=== PATIENT | male | born 1970 | race Two or more races ===

== ENCOUNTER 2017-03-17 15:43 | Inpatient (IN) | payer SELFPAY ==
[~2017-03-17] VITALS: Ht 167.6 cm; Wt 95.7 kg
[2017-03-17] MEDS ORDERED: IBUPROFEN 600MG TABLET PO STA (17:16)
[2017-03-17] MEDS ORDERED: SODIUM CHLORIDE 0.9% 1,000 ML IV ONE (17:16)
[2017-03-17 17:48] LABS: INR 1.2; PROTHROMBIN TIME 12.5 sec (9.4-11.6)
[2017-03-17 17:49] LABS: CHLORIDE 100 mEq/L (98-107)
[2017-03-17 17:51] LABS: CARBON DIOXIDE 21 mEq/L (21-32)
[2017-03-17 17:56] LABS: ETHANOL BLOOD < 10 mg/dL
[2017-03-17 17:58] LABS: TROPONIN I 0.07 ng/mL (0.00-0.04)
[2017-03-17 18:27] LABS: BASOPHILS % 1.3 % (0.0-2.0); EOSINOPHILS % 0.9 % (0.0-5.0); HEMATOCRIT. 35.8 % (42.0-52.0); HEMOGLOBIN. 12.5 g/dL (14.0-18.0); LYMPHOCYTES % 21.4 % (20.0-50.0); MEAN CORPUSCULAR HEMOGLOBIN 32.3 pg (28.0-32.0); MEAN CORPUSCULAR VOLUME 92.6 fL (80.0-94.0); MEAN PLATELET VOLUME 8.2 fl (7.4-10.4); MONOCYTES % 13.5 % (2.0-8.0); NEUTROPHILS % 62.9 % (40.0-76.0); PLATELET 130 x1000/uL (130-400); RED BLOOD CELL COUNT 3.87 mill/uL (4.7-6.1); RED CELL DISTRIBUTION WIDTH 14.4 % (11.6-14.6)
[2017-03-17] MEDS ORDERED: ASPIRIN 325MG TABLET PO ONE (18:45)
[2017-03-17 19:17] LABS: CLARITY URINE CLEAR (CLEAR); COLOR URINE YELLOW (YELLOW); GLUCOSE URINE NEGATIVE (NEGATIVE); KETONES URINE 1+ (NEGATIVE); LEUKOCYTE ESTERASE URINE NEGATIVE (NEGATIVE); NITRITE URINE NEGATIVE (NEGATIVE); OCCULT BLOOD URINE NEGATIVE (NEGATIVE); PROTEIN URINE TRACE (NEGATIVE)
[2017-03-17 19:32] LABS: *AMPHETAMINES SCREEN URINE PRESUMTIVE POSITIVE (NEGATIVE); *BARBITURATES SCREEN URINE NEGATIVE (NEGATIVE); *BENZODIAZEPINES SCREEN URINE NEGATIVE (NEGATIVE); *COCAINE SCREEN URINE NEGATIVE (NEGATIVE); CANNABINOID URINE SCREEN NEGATIVE (NEGATIVE); METHADONE URINE SCREEN NEGATIVE (NEGATIVE); OPIATES URINE SCREEN NEGATIVE (NEGATIVE); PHENCYCLIDINE URINE SCREEN NEGATIVE (NEGATIVE)
[2017-03-17] MEDS ORDERED: GUAIFENESIN 200MG/10ML SUGAR FREE UDC PO PRN (20:30)
[2017-03-17] MEDS ORDERED: DIPHENHYDRAMINE 50MG/ML VIAL IV PRN (20:30)
[2017-03-17] MEDS ORDERED: NITROGLYCERIN 0.4MG TABLET SL SL PRN (20:30)
[2017-03-17] MEDS ORDERED: LORAZEPAM 2MG/ML CPJ IV PRN (20:30)
[2017-03-17] MEDS ORDERED: ONDANSETRON HCL 4MG/2ML VIAL IV PRN (20:30)
[2017-03-17] MEDS ORDERED: CLONIDINE 0.1MG TABLET PO PRN (20:30)
[2017-03-17] MEDS ORDERED: DOCUSATE SODIUM 100MG CAPSULE PO PRN (20:30)
[2017-03-17] MEDS ORDERED: ACETAMINOPHEN 325MG TABLET PO PRN (20:30)
[2017-03-17] MEDS ORDERED: IPRATROPIUM/ALBUTEROL 0.5-3(2.5)MG/3ML NEB INH PRN (20:30)
[2017-03-17] MEDS ORDERED: MAGNESIUM/ALUMINUM HYDROXIDE/SIMETHICONE 30ML UDC PO PRN (20:30)
[2017-03-17] MEDS ORDERED: NA PHOS,M-B/NA PHOS,DI-BA ENEMA 118ML PR PRN (21:00)
[2017-03-17] MEDS: FAMOTIDINE 20MG/2ML VIAL IV SCH (21:00)
[2017-03-17] MEDS ORDERED: ZOLPIDEM TARTRATE 5MG TABLET PO PRN (21:00)
[2017-03-17 23:45] VITALS: BP 155/95
[2017-03-18] MEDS ORDERED: IBUP-2029 PO (00:10)
[2017-03-18] MEDS: DILTIAZEM HCL 60MG TABLET PO SCH ×3 (00:38→12:55)
[2017-03-18] MEDS: LISINOPRIL 20MG TABLET PO SCH ×2 (00:38→08:26)
[2017-03-18] MEDS: KETOROLAC 15MG/ML VIAL IV PRN ×2 (00:39→08:28)
[2017-03-18 01:26] LABS: CREATINE KINASE MB FRACTION 0.9 ng/mL (0.5-3.6); TROPONIN I 0.09 ng/mL (0.00-0.04)
[2017-03-18 04:00] VITALS: BP 140/83
[2017-03-18 08:00] VITALS: BP 118/73
[2017-03-18] MEDS: FAMOTIDINE 20MG/2ML VIAL IV SCH (08:28)
[2017-03-18] MEDS ORDERED: ENOXAPARIN 30MG/0.3ML SYR SUBCUT SCH ×2 (09:00→21:00)
[2017-03-18] MEDS ORDERED: ASPIRIN 325MG EC TABLET PO SCH (09:00)
[2017-03-18 11:50] VITALS: BP 127/85
[2017-03-18 12:00] VITALS: BP 127/85
[2017-03-18 13:57] LABS: CREATINE KINASE MB FRACTION 0.8 ng/mL (0.5-3.6); TROPONIN I 0.09 ng/mL (0.00-0.04)
[2017-03-18 16:00] VITALS: BP 104/65
== END 2017-03-18 18:30 | disposition home or self-care (01) | DRG 203 ==
LOC: ER 16:09 → 5WST 18:43 → EDBEDREQ 18:47 → ENRESERVTM 21:46 → ENRESERVDT 21:46
PROVIDERS: ADMIT Internal Medicine; ATTEND Internal Medicine
DX: R07.89 Other chest pain (principal); E44.1 Mild protein-calorie malnutrition; I10 Essential (primary) hypertension; F19.10 Other psychoactive substance abuse, uncomplicated; F41.9 Anxiety disorder, unspecified; I73.9 Peripheral vascular disease, unspecified; J98.11 Atelectasis; Z88.0 Allergy status to penicillin
CPT/HCPCS: 36415; 71010; 80053; 80061; 80305; 81001; 82550; 82553; 83036; 83690; 84484; 85025; 85379; 85610; 93005; 93970; 96360; 99285; G0482; J1650; J1885; J3490; J7030